=== PATIENT | female | born 1950 | race Caucasian/White ===

== ENCOUNTER → 2019-07-14 | Day surgery (SDC) | payer MEDICARE ==
[2019-07-07 13:30] LABS: BASOPHILS % 0.4 % (0.0-1.0); EOSINOPHILS # (AUTO) 0.5 (0.0-0.4); HEMATOCRIT 43.7 % (34.2-44.1); HEMOGLOBIN 14.4 g/dL (12.0-16.0); LYMPHOCYTES # (AUTO) 2.6 (1.0-3.2); LYMPHOCYTES % 26.1 % (18.0-39.1); MEAN CORPUSCULAR VOLUME 88.1 fL (81-99); MONOCYTES # (AUTO) 0.7 (0.2-0.8); MONOCYTES % 6.5 % (4.4-11.3); NEUTROPHILS # (AUTO) 6.2 (2.1-6.9); NEUTROPHILS % 61.7 % (38.7-80.0); PLATELET COUNT 244 x10e3/uL (140-360); RED BLOOD COUNT 4.96 x10e6/uL (3.6-5.1); RED CELL DISTRIBUTION WIDTH 14.6 % (11.7-14.4)
[2019-07-07 13:50] LABS: ALANINE AMINOTRANSFERASE 29 IU/L (0-55); ALBUMIN 3.7 g/dL (3.5-5.0); ALKALINE PHOSPHATASE 61 IU/L (40-150); ANION GAP 12.9 mmol/L (8-16); BLOOD UREA NITROGEN 17 mg/dL (7-26); BUN/CREATININE RATIO 20 (6-25); CALCIUM 9.4 mg/dL (8.4-10.2); CARBON DIOXIDE 27 mmol/L (22-29); CHLORIDE 101 mmol/L (98-107); CREATININE, SERUM 0.83 mg/dL (0.57-1.11); EST GLOMERULAR FILTRATION RATE > 60 ML/MIN (60-); GLUCOSE 85 mg/dL (74-118); POTASSIUM 3.9 mmol/L (3.5-5.1); SODIUM 137 mmol/L (136-145)
--- NOTE | 2019-07-07 14:25 | Diagnostic Imaging Report ---
EXAMINATION: CHEST 2 VIEWS INDICATION: Pre-operative COMPARISON: None FINDINGS: LINES/TUBES:None LUNGS:The lungs are well-inflated. No focal consolidation or pulmonary edema. PLEURA:No pleural effusion or pneumothorax. MEDIASTINUM:The cardiomediastinal silhouette appears normal in size and shape. BONES/SOFT TISSUES:No acute osseous injury. ABDOMEN:No free air under the diaphragm. Status post cholecystectomy. IMPRESSION: No focal pneumonia or pulmonary edema. Signed by: Mamadou Simmons MD on 07/07/2019 2:22 PM
[~2019-07-14] MED LIST: ACETAMINOPHEN 1000 MG/100 ML 100 ML IV ONE; ACETAMINOPHEN 1000 MG/100 ML IV ONE; B&O 60MG R/S 60 MG SUPP PR ONE; BACITRACIN 50,000 UNIT VIAL ONE; BUPIVACAINE 0.25%/EPI 30ML SDV INJ ONE; CEFAZOLIN SOD 1 GM/NS 50ML 100 ML IV ONE; DEXAMETHASONE SOD PHOS INJ 4 MG/ML VIAL ONE; EPHEDRINE SULFATE INJ 50 MG/10 ML SYR ONE; ESTROGENS CONJUGATED VAGINAL CR 45 GM TUBE PV ONE; FENTANYL CITRATE/PF 100MCG/2 ML INJ ONE; GLYCOPYRROLATE INJ 1MG/ 5 ML SYR ONE; HYDROMORPHONE 2MG/ML 2 MG/ML ML ONE; LIDOCAINE HCL 2% LOCAL INJ 5 ML SDV VIAL INJ ONE; LOSARTAN-HCTZ1 EACH PO; MELOXICAM7.5 MG PO; METOPROLOL TART25 MG PO; MIDAZOLAM HCL 2 MG/2 ML VIAL ONE; NEOSTIGMINE 5 MG/5ML SYR ONE; ONDANSETRON HCL INJ 2MG/ML 2ML 2 MG/ML VIAL ONE; PHENYLEPHRINE HCL 1% 10 MG/ML VIAL ONE; PROPOFOL IV EMULSION 10 MG/ML 20 ML VIAL ONE; ROCURONIUM BROMIDE 10 MG/ML 5ML VIAL ONE; SEVOFLURANE INHAL SOLN 250 ML PEN BTL ONE
--- OUTSIDE RECORDS SUMMARY | 2019-07-14 11:36 | XMS REPORT ---
Author Author [facility] Address Unknown Phone Unavailable Care Team Providers Care [employer] Name Role Phone SURENDRA HOLM Unavailable Unavailable Problems This patient has no known problems. Allergies, Adverse Reactions, Alerts This patient has no known allergies or adverse reactions. Medications This patient has no known medications. Results Test Description Test Time Test Comments Text Results Atomic Results Result Comments CHEST 2 VIEWS 2019-07-07 14:21:00 [place] [address] Patient Name: COLTON BENAVIDES MR #: [id number] : 1950 Age/Sex: 68/F Req #: [id number] Adm Physician: Ordered by: SURENDRA HOLM MD Report #: [id number] Location: OR Room/Bed: Procedure: [id number] DX/CHEST 2 VIEWS Exam Date: 07/07/19 Exam Time: 1323 REPORT STATUS: Signed EXAMINATION: CHEST 2 VIEWS INDICATION: Pre-operative COMPARISON: None FINDINGS: LINES/TUBES:None LUNGS:The lungs are well-inflated. No focal consolidation or pulmonary edema. PLEURA:No pleural effusion or pneumothorax. MEDIASTINUM:The cardiomediastinal silhouette appears normal in size and shape. BONES/SOFT TISSUES:No acute osseous injury. ABDOMEN:No free air under the diaphragm. Status post cholecystectomy. IMPRESSION: No focal pneumonia or pulmonary edema. Signed by: Catalina Simmons MD on 07/07/2019 2:22 PM Dictated By: CATALINA SIMMONS MD 1422 Transcribed By: WEST on 07/07/19 142 COPY TO: SURENDRA HOLM MD
[2019-07-14 17:30] VITALS: BP 100/61
--- NOTE | 2019-07-15 19:02 | Operative Report ---
DATE OF PROCEDURE: 07/14/2019 SURGEON: Gerardo Fay MD PREOPERATIVE DIAGNOSIS: Stress urinary incontinence with urethral hypermobility. POSTOPERATIVE DIAGNOSIS: Stress urinary incontinence with urethral hypermobility. OPERATION PERFORMED: Cystoscopy and transvaginal mid urethral sling - urethral suspension with Durapore. ANESTHESIOLOGIST: Staff. ANESTHESIA: General and local block. FINDINGS: The patient had adhesions around the urethra. The urethra had to be released. Cystoscopically, there were no tumors or stones in the bladder. Ureteral orifices were normal and post placement of the mid urethral sling, there was no evidence of any perforation. PROCEDURE IN DETAIL: With the patient under satisfactory general anesthesia, the patient was placed in the supine position on the operating table. Legs were placed on stirrups. Genitalia was prepped with Betadine soap and solution and draped in usual manner. Approximately 10 mL of local anesthetic was then injected into the suprapubic area, both on the right and the left side. Once that was done, also 10 mL was injected in mid urethra until the left and the right side of the bladder neck. At this point, a Sapp catheter was placed in the bladder and the bladder was drained. Next, incision was made suprapubically on the right and the left side. Once that was done, then the incision was carried down through the Jade's fascia. We entered Jade fascia and went all the way down to the rectus fascia. On the rectus fascia next to the rectus muscle where the external oblique and the internal oblique took off made an incision and fell into the retropubic space both on the right and the left side with no problems. At this point, attention was placed to the vagina where an inverted U was made next to the meatus. The flaps were lifted up to the bladder, exposing the entire urethra. The patient had had a previous vaginal surgery to lift up the bladder and do a hysterectomy. These adhesions were removed both from the bladder neck on the right and the left side and the right and the left side of the urethra. At this point, tunneling was made from the right and the left side all the way to the peritoneal reflection retropubically. Then, I punctured both the right and the left side so that I was able to put my finger through it. Next, attention was placed to creating the sling. I took a piece of UltraPro 6 cm long x 1 cm in width and I took the DuraPrep and cut a 1 cm segment, 6 cm long and then suture it with the dermal side out to the UltraPro. Another piece of Durapore was then obtained 1 cm in thickness x 1.5-2 cm in length and it was placed also in the middle of the UltraPro [place] side out suturing in place with 2-0 Vicryl. At the end of the Ultrapro on both sides, I placed a suture of Vicryl on both the right and the left sides. Using the Garry needle, the needle was placed suprapubically through the vagina by finger both on the right and the left side. The sutures were placed to the eye and brought out suprapubically. Once that was done, I had marked the midline for the Durapore and advancement of the sutures were made suprapubically until the sling was in the appropriate position. I have made a tunnel from right to left to bring the sutures to the left side and once appropriate tension was placed, then the sutures were tied. The excess suture was cut off. At this point, cystoscopy was done ascertaining that there was no sutures inside the bladder. Also I ascertained that the suture was not placed through the bladder neck. I looked inside the bladder with both the 12 degree and 70 degree angle lens. At this point, closure of the vagina was made using absorbable suture 3-0 and the vagina was then packed with a vaginal pack with estrogen. Suprapubically, approximation was done the same way subcuticularly with Steri-Strips and Dermabond on the skin. Estimated blood loss 10-50 mL. Sponge, needle count and instrument count was correct. The patient was then taken to the recovery room in satisfactory condition. She was given Keflex to take b.i.d. Talwin extra pain as needed. She was given a leg bag and overnight bag, and the patient was told to continue her medication and to return to my office the following day to remove the vaginal dressing. The patient was discharged if she met discharge criteria home. MD TEMITOPE Sadler/ALYSIAL /[id number]
== END | disposition home or self-care (01) ==
LOC: OR 11:18
PROVIDERS: ATTEND Urology
DX: N36.41 Hypermobility of urethra (principal); N39.3 Stress incontinence (female) (male); Z01.810 Encounter for preprocedural cardiovascular examination; Z01.812 Encounter for preprocedural laboratory examination; Z01.811 Encounter for preprocedural respiratory examination; I10 Essential (primary) hypertension; J44.9 Chronic obstructive pulmonary disease, unspecified
CPT/HCPCS: 36415; 57288; 71046; 80053; 85025; 87086; 93005; C1758; C1781; J0131; J0690; J1100; J1170; J2001; J2250; J2370; J2405; J2704; J3010; J3490

== ENCOUNTER → 2022-03-21 | Day surgery (SDC) | payer MEDICARE, OTHER ==
[2022-03-19 11:22] LABS: BASOPHILS % 0.4 % (0.0-1.0); EOSINOPHILS # (AUTO) 0.4 (0.0-0.4); EOSINOPHILS % 5.6 % (0.0-6.0); HEMATOCRIT 40.2 % (34.2-44.1); HEMOGLOBIN 12.5 g/dL (12.0-16.0); LYMPHOCYTES # (AUTO) 2.4 (1.0-3.2); MEAN CORPUSCULAR HEMOGLOBIN 28.2 pg (28-32); MEAN CORPUSCULAR HGB CONC 31.1 g/dL (31-35); MEAN CORPUSCULAR VOLUME 90.7 fL (81-99); MONOCYTES # (AUTO) 0.6 (0.2-0.8); MONOCYTES % 8.1 % (4.4-11.3); NEUTROPHILS # (AUTO) 3.6 (2.1-6.9); NEUTROPHILS % 51.8 % (38.7-80.0); PLATELET COUNT 210 x10e3/uL (140-360); RED BLOOD COUNT 4.43 x10e6/uL (3.6-5.1); RED CELL DISTRIBUTION WIDTH 14.2 % (11.7-14.4)
[~2022-03-21] MED LIST changes: -ACETAMINOPHEN 1000 MG/100 ML 100 ML IV ONE; -ACETAMINOPHEN 1000 MG/100 ML IV ONE; +ATORVASTATIN CA20 MG PO; -B&O 60MG R/S 60 MG SUPP PR ONE; -BACITRACIN 50,000 UNIT VIAL ONE; -BUPIVACAINE 0.25%/EPI 30ML SDV INJ ONE; -CEFAZOLIN SOD 1 GM/NS 50ML 100 ML IV ONE; +CYCLOBENZAPRINE10 MG PO; -DEXAMETHASONE SOD PHOS INJ 4 MG/ML VIAL ONE; -EPHEDRINE SULFATE INJ 50 MG/10 ML SYR ONE; -ESTROGENS CONJUGATED VAGINAL CR 45 GM TUBE PV ONE; -GLYCOPYRROLATE INJ 1MG/ 5 ML SYR ONE; -HYDROMORPHONE 2MG/ML 2 MG/ML ML ONE; -NEOSTIGMINE 5 MG/5ML SYR ONE; +NEURONTIN300 MG PO; +OMEPRAZOLE40 MG PO; -ONDANSETRON HCL INJ 2MG/ML 2ML 2 MG/ML VIAL ONE; -PHENYLEPHRINE HCL 1% 10 MG/ML VIAL ONE; -ROCURONIUM BROMIDE 10 MG/ML 5ML VIAL ONE; -SEVOFLURANE INHAL SOLN 250 ML PEN BTL ONE; +TRAZODONE HCL100 MG PO; +VICODIN HP 10-1 EAC1 PO
[2022-03-21 10:25] VITALS: BP 122/75
== END | disposition home or self-care (01) ==
LOC: OR 06:49
PROVIDERS: ATTEND Internal Medicine Gastroenterology
DX: R19.5 Other fecal abnormalities (principal); D12.3 Benign neoplasm of transverse colon; K57.30 Diverticulosis of large intestine without perforation or abscess without bleeding; K64.8 Other hemorrhoids; K21.9 Gastro-esophageal reflux disease without esophagitis; J44.9 Chronic obstructive pulmonary disease, unspecified; I10 Essential (primary) hypertension; E66.9 Obesity, unspecified; M54.9 Dorsalgia, unspecified; Z01.810 Encounter for preprocedural cardiovascular examination; Z01.812 Encounter for preprocedural laboratory examination; Z20.822 Contact with and (suspected) exposure to COVID-19; Z79.899 Other long term (current) drug therapy; Z68.37 Body mass index [BMI] 37.0-37.9, adult; Z87.891 Personal history of nicotine dependence
CPT/HCPCS: 36415; 45378; 85025; 93005; J2001; J2250; J3010

== ENCOUNTER 2024-01-24 13:05 | Observation (INO) | payer MEDICARE, OTHER ==
[~2024-01-24] VITALS: Ht 154.9 cm; Wt 86.2 kg
[~2024-01-24 13:05] MED LIST changes: -FENTANYL CITRATE/PF 100MCG/2 ML INJ ONE; +IOPAMIDOL 370 MG/ML 100 ML INFUS..BTL INJ ONE; -LIDOCAINE HCL 2% LOCAL INJ 5 ML SDV VIAL INJ ONE; -MIDAZOLAM HCL 2 MG/2 ML VIAL ONE; -PROPOFOL IV EMULSION 10 MG/ML 20 ML VIAL ONE; +Sodium Chloride 0.9% 50ML Bag ONE
[2024-01-24] MEDS ORDERED: SODIUM CHLORIDE FLUSH 10 ML SYR IV PRN (13:30)
[2024-01-24 13:47] LABS: BASOPHILS # (AUTO) 0.1 (0.0-0.1); BASOPHILS % 0.8 % (0.0-1.0); EOSINOPHILS # (AUTO) 0.2 (0.0-0.4); EOSINOPHILS % 2.9 % (0.0-6.0); HEMATOCRIT 42.8 % (34.2-44.1); HEMOGLOBIN 14.5 g/dL (12.0-16.0); LYMPHOCYTES # (AUTO) 2.5 (1.0-3.2); LYMPHOCYTES % 32.7 % (18.0-39.1); MEAN CORPUSCULAR HEMOGLOBIN 29.5 pg (28-32); MEAN CORPUSCULAR HGB CONC 33.9 g/dL (31-35); MEAN CORPUSCULAR VOLUME 87.2 fL (81-99); MONOCYTES # (AUTO) 0.7 (0.2-0.8); MONOCYTES % 8.7 % (4.4-11.3); NEUTROPHILS # (AUTO) 4.2 (2.1-6.9); NEUTROPHILS % 54.6 % (38.7-80.0); PLATELET COUNT 241 x10e3/uL (140-360); RED BLOOD COUNT 4.91 x10e6/uL (3.6-5.1); RED CELL DISTRIBUTION WIDTH 13.6 % (11.7-14.4); WHITE BLOOD COUNT 7.62 x10e3/uL (4.8-10.8)
[2024-01-24 13:55] LABS: CLARITY,URINE CLEAR (CLEAR); COLOR,URINE YELLOW (YELLOW); LEUKOCYTE ESTERASE ,URINE TRACE (NEGATIVE); NITRITE,URINE NEGATIVE (NEGATIVE); PH,URINE 6 (5 - 7)
[2024-01-24 13:56] LABS: BILIRUBIN,URINE NEGATIVE (NEGATIVE); GLUCOSE, URINE NEGATIVE (NEGATIVE); KETONES,URINE NEGATIVE (NEGATIVE); PROTEIN,URINE DIPSTICK NEGATIVE (NEGATIVE); URINE UROBILINOGEN 0.2 mg/dL (0.2 - 1)
[2024-01-24 14:01] LABS: INR 0.96; PROTHROMBIN TIME 13.5 seconds (11.9-14.5)
[2024-01-24 14:02] LABS: PARTIAL THROMBOPLASTIN TIME 25.9 seconds (23.8-35.5)
[2024-01-24 14:04] LABS: BACTERIA,URINE FEW /HPF; EPITHELIAL CELLS,URINE FEW /LPF; MUCUS,URINE FEW (RARE); RBC,URINE 0-5 /HPF (0-5)
[2024-01-24 14:12] LABS: ALANINE AMINOTRANSFERASE 15 IU/L (0-55); ALBUMIN 3.7 g/dL (3.5-5.0); ALBUMIN/GLOBULIN RATIO 1.1 (0.8-2.0); ALKALINE PHOSPHATASE 68 IU/L (40-150); ANION GAP 15.8 mmol/L (8-16); BILIRUBIN,TOTAL 0.5 mg/dL (0.2-1.2); BLOOD UREA NITROGEN 11 mg/dL (7-26); BUN/CREATININE RATIO 13 (6-25); CALCIUM 8.9 mg/dL (8.4-10.2); CARBON DIOXIDE 22 mmol/L (22-29); CHLORIDE 107 mmol/L (98-107); CREATININE, SERUM 0.87 mg/dL (0.57-1.11); EST GLOMERULAR FILTRATION RATE 69 ML/MIN (>=60); GLUCOSE 90 mg/dL (74-118); POTASSIUM 3.8 mmol/L (3.5-5.1); SODIUM 141 mmol/L (136-145)
[2024-01-24 14:24] LABS: TROPONIN I < 0.001 ng/mL (0-0.300)
[2024-01-24] MEDS ORDERED: ONDANSETRON HCL INJ 2MG/ML 2ML 2 MG/ML VIAL IV PRN (15:00)
[2024-01-24 15:31] VITALS: PULSE 75; RESP 20; O2SAT 96
[2024-01-24] MEDS: SODIUM CHLORIDE 0.9% 1000ML 1,000 ML IV SCH (16:30)
[2024-01-24] MEDS: SODIUM CHLORIDE 0.9% 500ML 500 ML IV ONE (16:30)
[2024-01-24] MEDS ORDERED: GABAPENTIN400 MG (16:44)
[2024-01-24] MEDS ORDERED: PROMETHAZINE-D118 ML (16:44)
[2024-01-24] MEDS ORDERED: AMOX TR-K CLV1 EAC2 (16:44)
[2024-01-24] MEDS ORDERED: IBUPROFEN600 MG (16:44)
[2024-01-24] MEDS ORDERED: OXYCOD/APAP (16:44)
[2024-01-24] MEDS ORDERED: ATORVASTATIN CA40 MG (16:44)
[2024-01-24] MEDS ORDERED: CETIRIZINE HCL10 MG (16:44)
[2024-01-24] MEDS ORDERED: PREDNISONE20 MG (16:44)
[2024-01-24 17:00] VITALS: BP 131/83; PULSE 71; RESP 19; TEMP 98; O2SAT 91
[2024-01-24 19:30] VITALS: BP 135/57; PULSE 72; RESP 18; TEMP 97.5; O2SAT 95
[2024-01-24 23:42] LABS: CREATINE KINASE 96 IU/L (29-168)
[2024-01-24 23:47] LABS: TROPONIN I < 0.001 ng/mL (0-0.300)
[2024-01-25] VITALS: BP 128/94; PULSE 73; RESP 18; TEMP 98.1; O2SAT 96
[2024-01-25 04:00] VITALS: BP 121/77; PULSE 72; RESP 18; TEMP 97.4; O2SAT 95
[2024-01-25 06:40] VITALS: PULSE 85; RESP 20; O2SAT 95
[2024-01-25 08:08] LABS: BASOPHILS % 0.6 % (0.0-1.0); EOSINOPHILS # (AUTO) 0.3 (0.0-0.4); EOSINOPHILS % 5.4 % (0.0-6.0); HEMATOCRIT 39.9 % (34.2-44.1); HEMOGLOBIN 12.7 g/dL (12.0-16.0); LYMPHOCYTES # (AUTO) 2.4 (1.0-3.2); LYMPHOCYTES % 39.6 % (18.0-39.1); MEAN CORPUSCULAR HEMOGLOBIN 28.5 pg (28-32); MEAN CORPUSCULAR HGB CONC 31.8 g/dL (31-35); MEAN CORPUSCULAR VOLUME 89.7 fL (81-99); MONOCYTES # (AUTO) 0.5 (0.2-0.8); NEUTROPHILS # (AUTO) 2.9 (2.1-6.9); NEUTROPHILS % 46.2 % (38.7-80.0); PLATELET COUNT 229 x10e3/uL (140-360); RED BLOOD COUNT 4.45 x10e6/uL (3.6-5.1); RED CELL DISTRIBUTION WIDTH 13.8 % (11.7-14.4); WHITE BLOOD COUNT 6.16 x10e3/uL (4.8-10.8)
[2024-01-25 08:12] VITALS: BP 136/86; PULSE 77; RESP 18; TEMP 97.8; O2SAT 97
[2024-01-25 08:17] VITALS: BP 136/86; PULSE 77; RESP 18; TEMP 97.8; O2SAT 97
[2024-01-25 08:34] LABS: CREATINE KINASE 81 IU/L (29-168)
[2024-01-25 08:36] LABS: ALBUMIN/GLOBULIN RATIO 1.1 (0.8-2.0); ANION GAP 12.9 mmol/L (8-16); BILIRUBIN,TOTAL 0.6 mg/dL (0.2-1.2); CALCIUM 8.1 mg/dL (8.4-10.2); CREATININE, SERUM 0.79 mg/dL (0.57-1.11); POTASSIUM 3.9 mmol/L (3.5-5.1); TOTAL PROTEIN 5.7 g/dL (6.5-8.1)
[2024-01-25 08:45] LABS: TROPONIN I < 0.001 ng/mL (0-0.300)
== END 2024-01-25 12:12 | disposition home or self-care (01) ==
LOC: ER 13:26 → ERHOLD 15:01 → INTOOBSV 15:01 → MED/SURG3 16:49
PROVIDERS: ADMIT Internal Medicine; ATTEND Internal Medicine
DX: N39.0 Urinary tract infection, site not specified (principal); I10 Essential (primary) hypertension; E78.5 Hyperlipidemia, unspecified; I44.4 Left anterior fascicular block; G89.29 Other chronic pain; Z11.52 Encounter for screening for COVID-19; Z79.899 Other long term (current) drug therapy
CPT/HCPCS: 36415 ×2; 70450; 70496; 70498; 71045; 80053 ×2; 81001; 82550 ×2; 83880; 84484 ×2; 85025 ×2; 85610; 85730; 87086; 93005; 94760; 94799 ×2; 99284; G0378 ×2; Q9967; U0002